=== PATIENT | male | born 1955 | race Caucasian/White ===

== ENCOUNTER → 2017-12-14 | Outpatient (CLI) | payer BC ==
--- NOTE | 2017-12-14 16:00 | US ---
EXAMINATION TYPE: US abdomen limited DATE OF EXAM: 12/14/2017 COMPARISON: CLINICAL HISTORY: R22.2 CHEST MAS,SWELLING. Palpable lump at right lateral rib. Patient states notic ing it 3-4 months ago and doesn't hurt. Palpable lump scanned. Superficial nonvascular lesion seen - 3.8 x 3.7 x 0.8 cm. This has internal l inear striations and could represent an elongated encapsulated lipoma. Contralateral images taken. IMPRESSION: Nonaggressive appearing sonographic abnormality that could represent encapsulated lipoma . If there is further concern CT could further delineate anatomy in internal characteristics.
--- NOTE | 2017-12-14 16:11 | XR ---
Left shoulder HISTORY: Acute pain in left shoulder 3 views of the left shoulder Distal acromion is downturned. Arthropathy is present at the acromion clavicular joint. Alignment and bone mineralization are maintained. Left lung apex as visualized is normal. No fracture or dislocati on. Some remodeling present at the glenohumeral joint is noted. IMPRESSION: Arthropathy change. Correlate for impingement. Shoulder MRI may be of benefit.
== END | disposition home or self-care (01) ==
LOC: RADUSWWP 14:22
PROVIDERS: ATTEND Internal Medicine
DX: R93.5 Abnormal findings on diagnostic imaging of other abdominal regions, including retroperitoneum (principal); M19.012 Primary osteoarthritis, left shoulder
CPT/HCPCS: 76705

== ENCOUNTER 2021-08-23 10:33 | Observation (INO) | payer BC, MEDICARE ==
[2021-08-23 11:00] LABS: Glucose,Whole Blood 168 mg/dL (70-110)
[2021-08-23] MEDS ORDERED: NITROGLYCERIN OINT 1 INCH/GM PACKET TOPICAL STA (11:09)
[2021-08-23] MEDS ORDERED: ASPIRIN 81 MG PO STA (11:09)
--- NOTE | 2021-08-23 11:19 | ED ---
General Adult HPI - General Chief complaint: Dizziness Stated complaint: Arm numbness Time Seen by Provider: 08/23/21 11:08 Source: patient, RN notes reviewed Mode of arrival: wheelchair Limitations: no limitations - History of Present Illness Initial comments: Patient is a 65-year-old male presents the emergency room with 2 days of intermittent left arm numbness and tingling. His last event that occurred was earlier this morning while in the shower. He reports his symptoms improved after resting when he got out. He reports that he was concerned given the symptoms along with elevated blood pressure levels. He is on losartan hydrochlorothiazide for his blood pressure and reports taking the medication today. Despite taking his medications as blood pressure has been elevated. He is also on Lipitor and a baby aspirin. He takes both of these medications at the time. He denies any typical chest pain, shortness of breath, diaphoresis, orthopnea, lower extremity edema, or headache. He does states that he has had a head cold which he believes he got from his daughter and son-in-law he denies taking any antihistamines or [id number] cold or flu medication. He denies any other complaints or concerns at this time. - Related Data Allergies Allergy/AdvReac Type Severity Reaction Status Date / Time No Known Allergies Allergy Verified 08/23/21 10:39 Review of Systems ROS Statement: Those systems with pertinent positive or pertinent negative responses have been documented in the HPI. ROS Other: All systems not noted in ROS Statement are negative. Past Medical History Past Medical History: Hypertension History of Any Multi-Drug Resistant Organisms: None Reported Past Surgical History: No Surgical Hx Reported Past Psychological History: No Psychological Hx Reported Smoking Status: Current every day smoker Past Alcohol Use History: None Reported Past Drug Use History: None Reported General Exam Limitations: no limitations General appearance: alert, in no apparent distress Head exam: Present: atraumatic, normocephalic, normal inspection Eye exam: Present: normal appearance, PERRL, EOMI. Absent: scleral icterus, conjunctival injection, periorbital swelling ENT exam: Present: normal exam, mucous membranes moist Neck exam: Present: normal inspection (No). Absent: tenderness, meningismus, lymphadenopathy Respiratory exam: Present: normal lung sounds bilaterally ( no). Absent: respiratory distress, wheezes, rales, rhonchi, stridor Cardiovascular Exam: Present: regular rate, normal rhythm, normal heart sounds. Absent: systolic murmur, diastolic murmur, rubs, gallop, clicks GI/Abdominal exam: Present: soft, normal bowel sounds. Absent: distended, tenderness, guarding, rebound, rigid Extremities exam: Present: normal inspection, full ROM, normal capillary refill. Absent: tenderness, pedal edema, joint swelling, calf tenderness Back exam: Present: normal inspection Neurological exam: Present: alert, oriented X3, CN II-XII intact Psychiatric exam: Present: normal affect, normal mood Skin exam: Present: warm, dry, intact, normal color. Absent: rash Course Vital Signs 08/23/21 08/23/21 10:33 10:50 Temperature 97.7 F Pulse Rate 77 77 Respiratory 18 18 Rate Blood Pressure 194/101 192/115 O2 Sat by Pulse 99 Oximetry Medical Decision Making - Medical Decision Making Patient with atypical left arm symptoms intermittent for the last 48 hours improved with rest along with elevated blood pressure. Will workup for ACS. On baby aspirin not taken today we will give 325 mg of aspirin along with Nitropaste and monitor blood pressure. EKG with ST depression and troponin negative. Findings discussed with patient patient continues to remain typical chest pain-free but still has occasional intermittent left arm paresthesia. Blood pressure improved with Nitropaste still with diastolic elevation will give oral beta mónica. Given EKG changes and atypical symptoms advised need for observation admission for trending of troponins and EKG monitoring. Case discussed with Dr. Mitchell. Case discussed with Vic Camilo hospitalist for observation admission. - Lab Data Result diagrams: 08/23/21 10:45 08/23/21 10:45 Lab Results 08/23/21 08/23/21 08/23/21 Range/Units 10:45 10:45 10:45 WBC 3.6 L (3.8-10.6) k/uL RBC 5.03 (4.30-5.90) m/uL Hgb 16.5 (13.0-17.5) gm/dL Hct 47.6 (39.0-53.0) % MCV 94.6 (80.0-100.0) fL MCH 32.9 (25.0-35.0) pg MCHC 34.7 (31.0-37.0) g/dL RDW 13.2 (11.5-15.5) % Plt Count 188 (150-450) k/uL MPV 7.9 Neutrophils % 47 % Lymphocytes % 39 % Monocytes % 8 % Eosinophils % 1 % Basophils % 1 % Neutrophils # 1.7 (1.3-7.7) k/uL Lymphocytes # 1.4 (1.0-4.8) k/uL Monocytes # 0.3 (0-1.0) k/uL Eosinophils # 0.0 (0-0.7) k/uL Basophils # 0.0 (0-0.2) k/uL PT 11.0 (9.0-12.0) sec INR 1.0 (<1.2) APTT 28.7 (22.0-30.0) sec Sodium 136 L (137-145) mmol/L Potassium 3.5 (3.5-5.1) mmol/L Chloride 98 (98-107) mmol/L Carbon Dioxide 31 H (22-30) mmol/L Anion Gap 7 mmol/L BUN 17 (9-20) mg/dL Creatinine 0.86 (0.66-1.25) mg/dL Est GFR (CKD-EPI)AfAm >90 (>60 ml/min/1.73 sqM) Est GFR (CKD-EPI)NonAf >90 (>60 ml/min/1.73 sqM) Glucose 178 H (74-99) mg/dL POC Glucose (mg/dL) (70-110) mg/dL POC Glu [employer] Consult[employer] ID Calcium 9.4 (8.4-10.2) mg/dL Magnesium 1.7 (1.6-2.3) mg/dL Total Bilirubin 0.3 (0.2-1.3) mg/dL AST 29 (17-59) U/L ALT 19 (4-49) U/L Alkaline Phosphatase 52 (38-126) U/L Troponin I (0.000-0.034) ng/mL Total Protein 6.9 (6.3-8.2) g/dL Albumin 4.4 (3.5-5.0) g/dL 08/23/21 08/23/21 Range/Units 10:45 10:56 WBC (3.8-10.6) k/uL RBC (4.30-5.90) m/uL Hgb (13.0-17.5) gm/dL Hct (39.0-53.0) % MCV (80.0-100.0) fL MCH (25.0-35.0) pg MCHC (31.0-37.0) g/dL RDW (11.5-15.5) % Plt Count (150-450) k/uL MPV Neutrophils % % Lymphocytes % % Monocytes % % Eosinophils % % Basophils % % Neutrophils # (1.3-7.7) k/uL Lymphocytes # (1.0-4.8) k/uL Monocytes # (0-1.0) k/uL Eosinophils # (0-0.7) k/uL Basophils # (0-0.2) k/uL PT (9.0-12.0) sec INR (<1.2) APTT (22.0-30.0) sec Sodium (137-145) mmol/L Potassium (3.5-5.1) mmol/L Chloride (98-107) mmol/L Carbon Dioxide (22-30) mmol/L Anion Gap mmol/L BUN (9-20) mg/dL Creatinine (0.66-1.25) mg/dL Est GFR (CKD-EPI)AfAm (>60 ml/min/1.73 sqM) Est GFR (CKD-EPI)NonAf (>60 ml/min/1.73 sqM) Glucose (74-99) mg/dL POC Glucose (mg/dL) 168 H (70-110) mg/dL POC Glu [employer] Consultant ID Hubert Martin Calcium (8.4-10.2) mg/dL Magnesium (1.6-2.3) mg/dL Total Bilirubin (0.2-1.3) mg/dL AST (17-59) U/L ALT (4-49) U/L Alkaline Phosphatase (38-126) U/L Troponin I <0.012 (0.000-0.034) ng/mL Total Protein (6.3-8.2) g/dL Albumin (3.5-5.0) g/dL - EKG Data EKG Comments: EKG shows sinus rhythm with ST depression in aVL leads I and II. Ventricular rate 74 bpm, NV interval 136 ms, QRS duration 90 ms, QT/QTC 380/408 ms PRT axes 59, 1, 65 When compared to previous EKG there are: previous EKG unavailable - Radiology Data Radiology results: report reviewed, image reviewed Chest x-ray two-view shows no acute processes Disposition Clinical Impression: Abnormal EKG, Hypertension Disposition: ADMITTED IP TO THIS HOSP Condition: Stable Is patient prescribed a controlled substance at d/c from ED?: No Referrals: Alcides Gabriel MD [Primary Care Provider] - 1-2 days Time of Disposition: 12:45
[2021-08-23 11:33] LABS: Basophils % (A) 1 %; Eosinophils % (A) 1 %; HCT 47.6 % (39.0-53.0); HGB 16.5 gm/dL (13.0-17.5); Lymphocytes # (A) 1.4 k/uL (1.0-4.8); Lymphocytes % (A) 39 %; MCH 32.9 pg (25.0-35.0); MCHC 34.7 g/dL (31.0-37.0); MCV 94.6 fL (80.0-100.0); Mean Platelet Volume 7.9; Monocytes # (A) 0.3 k/uL (0-1.0); Monocytes % (A) 8 %; Neutrophils # (A) 1.7 k/uL (1.3-7.7); Neutrophils % (A) 47 %; Platelet Count 188 k/uL (150-450); RBC 5.03 m/uL (4.30-5.90); RDW 13.2 % (11.5-15.5); WBC 3.6 k/uL (3.8-10.6)
[2021-08-23 11:42] LABS: Partial Thromboplastin Time 28.7 sec (22.0-30.0)
--- NOTE | 2021-08-23 11:45 | XR ---
EXAMINATION TYPE: XR chest 2V DATE OF EXAM: 08/23/2021 COMPARISON: NONE HISTORY: Chest pain. TECHNIQUE: Frontal and lateral views of the chest are obtained. FINDINGS: There is no suspicious focal air space opacity, pleural effusion, or pneumothorax seen. T he cardiac silhouette size is within normal limits. The osseous structures are intact. Overlying EK G leads are present. IMPRESSION: No acute process.
[2021-08-23 11:50] LABS: ALT 19 U/L (4-49); AST 29 U/L (17-59); African American GFR (CKD) >90 (>60 ml/min/1.73 sqM); Albumin 4.4 g/dL (3.5-5.0); Alkaline Phosphatase 52 U/L (38-126); Anion Gap 7 mmol/L; Blood Urea Nitrogen 17 mg/dL (9-20); Calcium 9.4 mg/dL (8.4-10.2); Carbon Dioxide 31 mmol/L (22-30); Chloride 98 mmol/L (98-107); Glucose 178 mg/dL (74-99); Magnesium 1.7 mg/dL (1.6-2.3); Non-African American GFR(CKD) >90 (>60 ml/min/1.73 sqM); Potassium 3.5 mmol/L (3.5-5.1); Sodium 136 mmol/L (137-145); Total Bilirubin 0.3 mg/dL (0.2-1.3); Total Protein 6.9 g/dL (6.3-8.2)
[2021-08-23] MEDS ORDERED: NALOXONE 0.4 MG/ML 1 ML VIAL IVP PRN (12:32)
[2021-08-23] MEDS ORDERED: ACETAMINOPHEN TAB 325 MG TAB PO PRN (12:32)
[2021-08-23] MEDS ORDERED: ONDANSETRON 4 MG/2 ML VIAL IVP PRN (12:32)
[2021-08-23] MEDS ORDERED: HYDROcodone/APAP 5-325MG 1 EACH TAB PO PRN (12:32)
[2021-08-23] MEDS ORDERED: NICOTINE 21MG/24HR PATCH TRANSDERM STA (12:36)
[2021-08-23] MEDS ORDERED: METOPROLOL TARTRATE 25 MG TAB PO STA (12:45)
[2021-08-23] MEDS ORDERED: hydrALAZINE HCL 20 MG/ML 1 ML VIAL IVP STA (13:54)
[2021-08-23] MEDS: amLODIPine 5 MG TAB PO SCH (14:27)
--- NOTE | 2021-08-23 18:37 | P.HPIM ---
History of Present Illness H&P Date: 08/23/21 History of Presenting Illness: Patient is a very pleasant 65-year-old male with a past medical history of hypertension and nicotine dependence. He presented to the emergency department with the chief complaint of chest tightness accompanied by intermittent left arm numbness and tingling. Patient reported these symptoms began approximately 3 days ago and have waxed and waned. He denies having any headache, lightheadedness, dizziness, shortness of breath, cough or congestion, nausea, or experiencing any swelling or pain in extremities. Upon arrival to the emergency department patient was found to be in hypertensive urgency with blood pressure 192/115 requiring IV antihypertensive medication hydralazine resulting in successful lowering of blood pressure. EKG was completed showing sinus rhythm at [address] depression in leads II, V5 and V6. Chest x-ray negative for acute cardiopulmonary process. CBC revealing WBC count of 3.6 and CMP revealing hypercarbia with carbon dioxide 31 and hyperglycemia with glucose of 178 otherwise normal findings. Troponin was negative. Covid PCR was positive. Patient admitted under our services with consultation to cardiology. Review of systems: Pertinent positives and negatives as discussed in HPI, a complete review of systems was performed and all other systems are negative. Physical exam: Vital signs reviewed and stable. General: Nontoxic, no distress and appears stated age. Derm: Skin warm and dry, normal coloration for ethnicity. Head: Atraumatic, normocephalic and symmetric. Eyes: EOMs intact, no lid lag, and anicteric sclera Mouth: no lip lesions, mucus membranes moist Cardiovascular: regular rate and rhythm with normal S1S2, no murmur, positive posterior tibial pulses bilaterally, and cap refill < 2 seconds. Lungs: Respirations even, regular, and unlabored on room air. Lungs CTA bilatera lly, no rhonchi, no rales, no wheezing, and no accessory muscle usage. Abdominal: soft, nontender to palpation, no guarding, no appreciable organomegaly Ext: ROM intact. No gross muscle atrophy, no edema, no contractures Neuro: Speech clear, face symmetrical and CN II-XII grossly intact with no noted focal neuro deficits Psych: Alert and oriented to person, place, time, and situation. Appropriate and pleasant affect. Assessment and Plan of Care: Chest pain, rule out acute coronary event -Cardiology consult, appreciate further recommendations -Telemetry monitoring -Trend troponins -Cardiac diet, NPO at midnight -Aspirin and atorvastatin -Lipid profile with a.m. labs. -Echocardiogram Hypertensive urgency -Blood pressure 192/115 requiring IV antihypertensive medication with hydralazine. -Patient to resume losartan-hydrochlorothiazide and was started on amlodipine 5 mg daily. -Monitor vital signs closely. -Echocardiogram being completed. COVID 19 detected -Oxygenation to be administered as needed and titrated as needed to maintain SPO2 equal to or greater than 90% -Telemetry monitoring. -Trend inflammatory markers -Encourage Incentive Spirometry 10-15x hourly while awake -Vitamin C, Vitamin D, and Zinc. -DVT prophylaxis with heparin -Strict Droplet plus Contact precautions Nicotine dependence -Nicotine patch -Encourage smoking cessation The patient is admitted with an anticipated less than 2 midnight stay for evaluation of chest pain CODE STATUS: Full code DVT prophylaxis: Heparin Discussed with: Patient and RN Anticipated discharge date: 1-[address]: Home A total of 44 minutes was spent on the care of this complex patient more than 50% of the time was spent in counseling and care coordination. Past Medical History Past Medical History: Hypertension History of Any Multi-Drug Resistant Organisms: None Reported Past Surgical History: No Surgical Hx Reported Past Psychological History: No Psychological Hx Reported Smoking Status: Current every day smoker Past Alcohol Use History: None Reported Past Drug Use History: None Reported Medications and Allergies Home Medications Medication Instructions Recorded Confirmed Type Aspirin EC [Ecotrin Low Dose] 81 mg PO HS 08/23/21 08/23/21 History Cinnamon Bark [Cinnamon] 500 mg PO DAILY 08/23/21 08/23/21 History Losartan/Hydrochlorothiazide 1 tab PO DAILY 08/23/21 08/23/21 History [Losartan-Hctz 100-25 mg Tab] [place]-3/Dha/Epa/Fish Oil [Fish Oil 1 cap PO DAILY 08/23/21 08/23/21 History 1,000 mg Softgel] Simvastatin [Zocor] 10 mg PO HS 08/23/21 08/23/21 History Allergies Allergy/AdvReac Type Severity Reaction Status Date / Time No Known Allergies Allergy Verified 08/23/21 12:54 Physical Exam Vitals: Vital Signs Temp Pulse Resp BP Pulse Ox 08/23/21 10:50 77 18 192/115 08/23/21 10:33 97.7 F 77 18 194/101 99 Intake and Output 08/22/21 08/23/21 08/23/21 22:59 06:59 14:59 Other: Weight 86.183 kg Results CBC & Chem 7: 08/23/21 10:45 08/23/21 10:45 Labs: Abnormal Lab Results - Last 24 Hours (Table) 08/23/21 08/23/21 08/23/21 Range/Units 10:45 10:45 10:56 WBC 3.6 L (3.8-10.6) k/uL Sodium 136 L (137-145) mmol/L Carbon Dioxide 31 H (22-30) mmol/L Glucose 178 H (74-99) mg/dL POC Glucose (mg/dL) 168 H (70-110) mg/dL
[2021-08-23] MEDS: HEPARIN SODIUM,PORCINE/PF 5,000 UNIT/0.5 ML SYRINGE SQ SCH ×2 (19:57→20:42)
[2021-08-23] MEDS ORDERED: cloNIDine HCL 0.2 MG TAB PO PRN (21:01)
[2021-08-24] MEDS ORDERED: PANTOPRAZOLE 40 MG TABLET PO SCH (07:30)
[2021-08-24 07:39] VITALS: BP 148/88; PULSE 68; RESP 16; TEMP 97.9
[2021-08-24] MEDS ORDERED: ATORVASTATIN 80 MG TAB PO SCH (09:00)
[2021-08-24] MEDS ORDERED: ASCORBIC ACID 500 MG TAB PO SCH (09:00)
[2021-08-24] MEDS ORDERED: FOLIC ACID 1 MG TAB PO SCH (09:00)
[2021-08-24] MEDS ORDERED: LOSARTAN-HCTZ 50-12.5 MG 1 EACH TAB PO SCH (09:00)
[2021-08-24] MEDS ORDERED: CHOLECALCIFEROL 125 MCG (5000 IU) TABLET PO SCH (09:00)
[2021-08-24] MEDS ORDERED: NON FORMULARY DRUG (Omega-3/Dha/Epa/Fish Oil [Fish Oil 1,000 Mg Softgel] 1 EACH Capsule) PO SCH (09:00)
[2021-08-24] MEDS ORDERED: ASPIRIN 81 MG PO SCH (09:00)
[2021-08-24] MEDS: amLODIPine 5 MG TAB PO SCH (09:24)
[2021-08-24] MEDS: HEPARIN SODIUM,PORCINE/PF 5,000 UNIT/0.5 ML SYRINGE SQ SCH (09:24)
[2021-08-24 09:50] LABS: HCT 44.7 % (39.6-50.0); HGB 15.4 g/dL (13.0-17.0); MCH 30.9 pg (27.0-32.0); MCHC 34.5 g/dL (32.0-37.0); MCV 89.8 fL (80.0-97.0); Mean Platelet Volume 10.4 fL (9.5-12.2); NRBC Per 100 WBC 0 /100 WBCS (0.0-0.0); Platelet Count 187 X 10*3/uL (140-440); RBC 4.98 X 10*6/uL (4.40-5.60); RDW 13.2 % (11.5-14.5); WBC 4.99 X 10*3/uL (4.50-10.00)
[2021-08-24 10:28] LABS: ALT 18 U/L (10-49); AST 23 U/L (14-35); African American GFR (CKD) 108.4 (60.0-200.0); Albumin 4.1 g/dL (3.8-4.9); Albumin/Globulin Ratio 1.94 (1.60-3.17); Alkaline Phosphatase 48 U/L (41-126); BUN/Creat Ratio 20.99 Ratio (12.00-20.00); Blood Urea Nitrogen 16.6 mg/dL (9.0-27.0); C Reactive Protein <0.30 mg/dL (0.00-0.80); Calcium 9.3 mg/dL (8.7-10.3); Carbon Dioxide 24.6 mmol/L (20.0-27.5); Chloride 100 mmol/L (96-109); Globulin 2.1 g/dL (1.6-3.3); Glucose 106 mg/dL (70-110); LDH 163 U/L (120-246); LDL Cholesterol,Calculated 65.9 mg/dL (0.0-131.0); Magnesium 1.8 mg/dL (1.5-2.4); Non-African American GFR(CKD) 93.5 (60.0-200.0); Potassium 3.7 mmol/L (3.5-5.5); Sodium 138 mmol/L (135-145); Total Protein 6.2 g/dL (6.2-8.2); VLDL Calculation 18.88 mg/dL (5.00-40.00)
--- NOTE | 2021-08-24 16:23 | P.DS ---
Providers Date of admission: 08/23/21 12:22 Expected date of discharge: 08/24/21 Attending physician: Yumiko Muller DO Consults: 08/23/21 12:33 Consult Physician Routine Consulting Provider: [facility] Consult Reason/Comments: Chest Pain Do you want consulting provider notified?: Yes Primary care physician: [facility] Course: THIS IS NOT A DISCHARGE SUMMARY, BUT A SUMMARY OF CARE PATIENT LEFT AGAINST MEDICAL ADVICE: Chest pain, rule out acute coronary event Hypertensive urgency COVID 19 detected Nicotine dependence Hospital Course: Patient is a very pleasant 65-year-old male with a past medical history of hypertension and nicotine dependence. He presented to the emergency department with the chief complaint of chest tightness accompanied by intermittent left arm numbness and tingling. Patient reported these symptoms began approximately 3 days ago and have waxed and waned. He denies having any headache, lightheadedness, dizziness, shortness of breath, cough or congestion, nausea, or experiencing any swelling or pain in extremities. Upon arrival to the emergency department patient was found to be in hypertensive urgency with blood pressure 192/115 requiring IV antihypertensive medication hydralazine resulting in successful lowering of blood pressure. EKG was completed showing sinus rhythm at [address] depression in leads II, V5 and V6. Chest x-ray negative for acute cardiopulmonary process. CBC revealing WBC count of 3.6 and CMP revealing hypercarbia with carbon dioxide 31 and hyperglycemia with glucose of 178 otherwise normal findings. Troponin was negative. Covid PCR was positive. Patient admitted under our services with consultation to cardiology. D-dimer completed negative findings is 0.37. Patient was monitored overnight and troponins were trended all negative at less than 0.0123 draws. While awaiting evaluation by cardiology patient reportedly did not want to stay in hospital any longer. Was notified by RN that patient left AGAINST MEDICAL ADVICE at 10:09 AM. Was notified by RN that patient left AGAINST MEDICAL ADVICE at 10:09 AM. Patient Condition at Discharge: Stable Plan - Discharge Summary Discharge Rx Participant: Yes New Discharge Prescriptions: No Action Cinnamon Bark [Cinnamon] 500 mg PO DAILY [place]-3/Dha/Epa/Fish Oil [Fish Oil 1,000 mg Softgel] 1 cap PO DAILY Losartan/Hydrochlorothiazide [Losartan-Hctz 100-25 mg Tab] 1 tab PO DAILY Aspirin EC [Ecotrin Low Dose] 81 mg PO HS Simvastatin [Zocor] 10 mg PO HS Discharge Medication List Aspirin EC [Ecotrin Low Dose] 81 mg PO HS 08/23/21 [History] Cinnamon Bark [Cinnamon] 500 mg PO DAILY 08/23/21 [History] Losartan/Hydrochlorothiazide [Losartan-Hctz 100-25 mg Tab] 1 tab PO DAILY 08/23/21 [History] [place]-3/Dha/Epa/Fish Oil [Fish Oil 1,000 mg Softgel] 1 cap PO DAILY 08/23/21 [History] Simvastatin [Zocor] 10 mg PO HS 08/23/21 [History] Follow up Appointment(s)/Referral(s): Alcides Gabriel MD [Primary Care Provider] - 1-2 days Discharge Disposition: Left Against Medical Advice
== END 2021-08-24 10:14 | disposition left against medical advice (07) ==
LOC: EC 10:33 → 6NMEDSUR 12:22
PROVIDERS: ADMIT Internal Medicine; ATTEND Internal Medicine
DX: I16.0 Hypertensive urgency (principal); U07.1 COVID-19; R07.89 Other chest pain; R94.31 Abnormal electrocardiogram [ECG] [EKG]; F17.200 Nicotine dependence, unspecified, uncomplicated; Z53.29 Procedure and treatment not carried out because of patient's decision for other reasons; I10 Essential (primary) hypertension; R73.9 Hyperglycemia, unspecified; Z79.82 Long term (current) use of aspirin; Z79.899 Other long term (current) drug therapy; Z71.6 Tobacco abuse counseling
CPT/HCPCS: 96372 ×2; 99285; 36415; 93005; 85379 ×2; 80061; 80053 ×2; 83615; 83735 ×2; 84484; 85025; 85027; 85610; 85730; 86140; 87635; 71046; G0378 ×2; S4990; J1644 ×2